=== PATIENT | female | born 1980 | race Caucasian/White ===

== ENCOUNTER → 2021-01-31 | Outpatient (CLI) | payer OTHER ==
--- NOTE | 2021-01-31 15:25 | Diagnostic Imaging Report ---
Indication: Right flank pain. Time of exam: 11:29 AM Single view of the abdomen was obtained. Bowel gas pattern is unremarkable. No definite radiopaque urinary tract calculi are seen. There is a tiny calcification of the left pelvis, indeterminate. This could represent a phlebolith although a distal left ureteric calculus cannot be entirely excluded. Study is otherwise unremarkable. Impression: Tiny left pelvic calcification, indeterminate. The study is otherwise unremarkable. Dictated by: Dictated on workstation # [id number]
== END ==
LOC: RAD 11:04
PROVIDERS: ATTEND Nurse Practitioner Family
DX: R10.9 Unspecified abdominal pain (principal); Z87.442 Personal history of urinary calculi
CPT/HCPCS: 74018